=== PATIENT | male | born 2000 | race Caucasian/White ===

== ENCOUNTER 2019-01-03 12:33 | Emergency (ER) | payer OTHER ==
[~2019-01-03] VITALS: Ht 182.9 cm; Wt 79.5 kg
[2019-01-03] MEDS: POVIDONE-IODINE 10% 15 ML SOLUTION UD TP ONE (14:14)
[2019-01-03] MEDS: LIDOCAINE 1% 10 ML VIAL INJ ONE (14:14)
[2019-01-03] MEDS: OxyCODONE HCL/ACETAMINOPHEN 5-325 MG TABLET PO ONE (14:14)
[2019-01-03] MEDS: BACITRACIN 0.9 GM PACKET OINTMENT TP ONE (14:14)
[2019-01-03 16:29] VITALS: BP 134/76
== END 2019-01-03 16:33 | disposition home or self-care (01) ==
LOC: EMS 12:33
DX: S61.212A Laceration without foreign body of right middle finger without damage to nail, initial encounter (principal); W45.8XXA Other foreign body or object entering through skin, initial encounter; Y93.89 Activity, other specified; Y92.89 Other specified places as the place of occurrence of the external cause; Y99.8 Other external cause status
CPT/HCPCS: 12002; 73140; 99283; J3490

== ENCOUNTER 2019-01-05 16:02 | Emergency (ER) | payer OTHER ==
[~2019-01-05] VITALS: Ht 177.8 cm; Wt 77.3 kg
[2019-01-05 17:44] VITALS: BP 122/70
== END 2019-01-05 17:45 | disposition home or self-care (01) ==
LOC: EMS 16:03
DX: S61.212D Laceration without foreign body of right middle finger without damage to nail, subsequent encounter (principal); X58.XXXD Exposure to other specified factors, subsequent encounter

== ENCOUNTER 2019-01-11 15:33 | Emergency (ER) | payer OTHER ==
[~2019-01-11] VITALS: Ht 177.8 cm; Wt 77.3 kg
[2019-01-11] MEDS ORDERED: BACITRACIN 0.9 GM PACKET OINTMENT TP ONE (18:00)
[2019-01-11 18:41] VITALS: BP 109/63
== END 2019-01-11 18:51 | disposition home or self-care (01) ==
LOC: EMS 15:35
DX: S61.210D Laceration without foreign body of right index finger without damage to nail, subsequent encounter (principal); Z48.02 Encounter for removal of sutures; W45.8XXD Other foreign body or object entering through skin, subsequent encounter